=== PATIENT | male | born 1950 | race Caucasian/White ===

== ENCOUNTER 2025-02-10 00:49 | Inpatient (IN) | payer MEDICARE ==
[2025-02-10] VITALS (13 sets, daily range): BP systolic 107–129; BP diastolic 55–73; TEMP 97.2–97.9; O2SAT 90–98
[~2025-02-10] VITALS: Ht 167.6 cm; Wt 61.7 kg
[2025-02-10 01:47] LABS: BASO # 0.1 10^3/uL (0.0-0.2); BASO % 0.3 % (0.0-1.0); EOS # 0.5 10^3/uL (0.0-0.5); EOS % 2.9 % (0.0-3.0); HEMATOCRIT 38.1 % (42.0-52.0); HEMOGLOBIN 11.6 g/dl (13.5-17.5); LYMPH # 1.6 10^3/uL (1.5-5.0); LYMPH % 9.9 % (24.0-44.0); MEAN CORPUSCULAR HEMOGLOBIN 31.9 pg (27.0-33.0); MEAN CORPUSCULAR HGB CONC 30.4 g/dl (32.0-36.5); MEAN CORPUSCULAR VOLUME 104.7 fl (80.0-96.0); MONO # 0.9 10^3/uL (0.0-0.8); MONO % 5.9 % (2.0-8.0); NEUTROPHILS # 12.7 10^3/uL (1.5-8.5); NEUTROPHILS % 80.4 % (36.0-66.0); PLATELET COUNT, AUTOMATED 309 10^3/uL (150-450); RED BLOOD COUNT 3.64 10^6/uL (4.30-6.10); WHITE BLOOD COUNT 15.8 10^3/uL (4.0-10.0)
[2025-02-10 02:09] LABS: INR 0.99; PROTHROMBIN TIME 13.4 SECONDS (12.5-14.5)
[2025-02-10 02:14] LABS: ALBUMIN 3.1 G/DL (3.2-5.2); ALKALINE PHOSPHATASE 174 U/L (40-129); ALT/SGPT 19 U/L (7.0-40); AST/SGOT 33 U/L (<34); BILIRUBIN,DIRECT < 0.1 MG/DL (<0.4); BILIRUBIN,TOTAL 0.2 MG/DL (0.3-1.2); BLOOD UREA NITROGEN 77 MG/DL (9-23); CALCIUM LEVEL 9.1 MG/DL (8.3-10.6); CARBON DIOXIDE LEVEL 22 MMOL/L (20-31); CHLORIDE LEVEL 100 MMOL/L (98-107); CK-MB VALUE MASS 3.7 NG/ML (<3.6); CREATININE FOR GFR 6.31 MG/DL (0.70-1.30); GLOMERULAR FILTRATION RATE 8.7 (>42); GLUCOSE, FASTING 184 MG/DL (74-106); POTASSIUM SERUM 5.7 MMOL/L (3.5-5.1); SODIUM LEVEL 139 MMOL/L (136-145); TOTAL PROTEIN 7.3 G/DL (5.7-8.2)
[2025-02-10 02:15] LABS: CPK CREATINE PHOSPHOKINASE 89 U/L (46-171); MB/CK RELATIVE INDEX 4.15 (< OR =4)
[2025-02-10 02:35] LABS: MAGNESIUM LEVEL 2.1 MG/DL (1.8-2.4)
[2025-02-10] MEDS: CALCIUM GLUCONATE 1,000 MG in DEXTROSE 5% (D5W) MINI-BAG PLU 100 ML IV ONE (06:00)
[2025-02-10] MEDS: cefTRIAXone SOD 1 GM in DEXTROSE 5% (D5W) ADV/MINI-BAG 50 ML IV ONE (06:17)
[2025-02-10 06:27] LABS: KETONE, URINE AUTO RFX NEGATIVE (NEGATIVE); LEUKOCYTE ESTERASE UR AUTO RFX 3+ (NEGATIVE); MUCUS, URINE RFX SMALL (NEGATIVE); NITRITE, URINE AUTO RFX NEGATIVE (NEGATIVE); RBC, URINE AUTO RFX 23 /HPF (0-3); SQUAM EPITHELIAL CELL UR AURFX 0 /HPF (0-6); WBC, URINE AUTO RFX TNTC /HPF (0-3)
[2025-02-10 07:56] LABS: ABG BASE EXCESS -7.7 (-2.0-2.0); ABG HCO3 17.4 MMOL/L (22.0-26.0); ABG O2 SATURATION 90.8 % (95.0-99.0); ABG PARTIAL PRESSURE O2 71.5 mmHg (75.0-100.0); ABG STANDARD HCO3 18.1 MMOL/L. (22.0-26.0); ABG TOTAL CO2 18.4 MMOL/L (23.0-31.0); ABG pH (ARTERIAL) 7.326 UNITS (7.350-7.450)
[2025-02-10] MEDS ORDERED: SEVE2.4P PO (08:35)
[2025-02-10] MEDS ORDERED: LEVE15SO2 PO (08:35)
[2025-02-10] MEDS ORDERED: MIDO2.5T3 PO (08:37)
[2025-02-10] MEDS ORDERED: MIRT-10 PO (08:38)
[2025-02-10] MEDS ORDERED: ELIQ2.5T PO (08:39)
[2025-02-10] MEDS ORDERED: ESOM40CA35 PO (08:40)
[2025-02-10] MEDS ORDERED: AMIO200T49 PO (08:40)
[2025-02-10] MEDS ORDERED: GABA-1172 PO (08:42)
[2025-02-10] MEDS ORDERED: RENATAB5 PO (08:42)
[2025-02-10] MEDS ORDERED: ATOR40TA75 PO (08:42)
[2025-02-10] MEDS ORDERED: CLOP75TA2 PO (08:44)
[2025-02-10] MEDS ORDERED: METO25TA4 PO (08:44)
[2025-02-10] MEDS ORDERED: NEUTPW PO (08:46)
[2025-02-10] MEDS ORDERED: NEPR1LIQ2 PO (08:51)
[2025-02-10] MEDS ORDERED: MELA3TAB30 PO (08:52)
[2025-02-10] MEDS ORDERED: DICL100G10 TOP (08:53)
[2025-02-10] MEDS ORDERED: APAP325T4 PO (08:54)
[2025-02-10] MEDS ORDERED: DOXYCYCLINE HYCLATE 100MG TABLET PO SCH (09:00)
[2025-02-10] MEDS ORDERED: ATORVASTATIN 20 MG TAB PO SCH (09:00)
[2025-02-10] MEDS ORDERED: GABAPENTIN 300 MG CAP PO SCH (09:00)
[2025-02-10] MEDS ORDERED: levETIRAcetam ORAL SOLUTION 500MG/5ML UDC PO SCH (09:00)
[2025-02-10] MEDS ORDERED: APIXABAN 2.5 MG TAB (ELIQUIS) PO SCH (09:00)
[2025-02-10] MEDS ORDERED: CLOPIDOGREL 75 MG TAB PO SCH (09:00)
[2025-02-10] MEDS ORDERED: MIDODRINE 2.5 MG TAB PO SCH (09:00)
[2025-02-10] MEDS ORDERED: METOPROLOL TART 25 MG TABLET PO SCH (09:00)
[2025-02-10] MEDS ORDERED: AMIODARONE 200 MG TAB (PACERONE) PO SCH (09:00)
[2025-02-10] MEDS ORDERED: NEUTRA-PHOS 1.5 GM PACKET PO SCH (09:00)
[2025-02-10] MEDS ORDERED: HOME MED LIST COMPLETE! XX SCH (09:00)
[2025-02-10 09:07] LABS: VENOUS BASE EXCESS -7.2 (-2.0-2.0); VENOUS HCO3 17.6 MMOL/L (23.0-27.0); VENOUS O2 SATURATION 97.5 % (60.0-80.0); VENOUS PARTIAL PRESSURE CO2 33.6 mmHg (38.0-50.0); VENOUS PARTIAL PRESSURE O2 137.5 mmHg (30.0-50.0); VENOUS PH 7.338 UNITS (7.330-7.430); VENOUS STANDARD HCO3 18.6 MMOL/L; VENOUS TOTAL CO2 18.7 MMOL/L (24.0-28.0)
[2025-02-10 12:06] LABS: PROCALCITONIN 0.59 ng/ml
[2025-02-10] MEDS: METOPROLOL TART 25 MG TABLET GT SCH (13:31)
[2025-02-10] MEDS: ATORVASTATIN 20 MG TAB GT SCH (13:31)
[2025-02-10] MEDS: levETIRAcetam ORAL SOLUTION 500MG/5ML UDC GT SCH (13:32)
[2025-02-10] MEDS: NEUTRA-PHOS 1.5 GM PACKET GT SCH (13:32)
[2025-02-10] MEDS: CLOPIDOGREL 75 MG TAB GT SCH (13:32)
[2025-02-10] MEDS: APIXABAN 2.5 MG TAB (ELIQUIS) GT SCH (13:33)
[2025-02-10] MEDS: DOXYCYCLINE HYCLATE 100MG TABLET GT SCH (13:33)
[2025-02-10] MEDS: AMIODARONE 200 MG TAB (PACERONE) GT SCH (13:33)
[2025-02-10] MEDS: MIDODRINE 2.5 MG TAB GT SCH (13:37)
[2025-02-10 14:38] LABS: HEPATITIS B SURFACE ANTIBODY POSITIVE (POSITIVE)
[2025-02-10 14:50] LABS: HEPATITIS B SURFACE ANTIGEN NEGATIVE (NEGATIVE)
[2025-02-10 16:20] LABS: VENOUS O2 SATURATION 96.5 % (60.0-80.0); VENOUS PARTIAL PRESSURE CO2 34.2 mmHg (38.0-50.0); VENOUS PARTIAL PRESSURE O2 108.8 mmHg (30.0-50.0); VENOUS PH 7.338 UNITS (7.330-7.430); VENOUS STANDARD HCO3 18.8 MMOL/L
[2025-02-10] MEDS: GABAPENTIN 300 MG CAP GT SCH (16:40)
[2025-02-10] MEDS ORDERED: HEPARIN 1,000UNITS/ML 10ML VIAL (FOR RADIOLOGY & DIALYSIS ONLY) IV PRN (17:45)
[2025-02-10] MEDS ORDERED: SODIUM CHLORIDE 0.9% 1000 ML IV PRN (17:45)
[2025-02-10] MEDS: IPRATROPIUM 0.5MG/ALBUTEROL 2.5MG INH SOL UD 3ML INH SCH (17:52)
[2025-02-10] MEDS: HEPARIN 1,000UNITS/ML 10ML VIAL (FOR RADIOLOGY & DIALYSIS ONLY) XX SCH (18:37)
[2025-02-11] VITALS (23 sets, daily range): BP systolic 101–120; BP diastolic 49–82; TEMP 97.3–98.5; O2SAT 84–97
[2025-02-11] MEDS: cefTRIAXone SOD 1 GM in DEXTROSE 5% (D5W) ADV/MINI-BAG 50 ML IV SCH (05:23)
[2025-02-11 07:36] LABS: HEMATOCRIT 33.5 % (42.0-52.0); HEMOGLOBIN 10.4 g/dl (13.5-17.5); MEAN CORPUSCULAR HEMOGLOBIN 31.5 pg (27.0-33.0); MEAN CORPUSCULAR VOLUME 101.5 fl (80.0-96.0); PLATELET COUNT, AUTOMATED 231 10^3/uL (150-450); WHITE BLOOD COUNT 9.5 10^3/uL (4.0-10.0)
[2025-02-11 08:07] LABS: CALCIUM LEVEL 8.9 MG/DL (8.3-10.6); CREATININE FOR GFR 4.64 MG/DL (0.70-1.30); GLOMERULAR FILTRATION RATE 12.6 (>42); POTASSIUM SERUM 4.8 MMOL/L (3.5-5.1)
[2025-02-11] MEDS: MIDODRINE 2.5 MG TAB GT SCH (22:02)
[2025-02-12] VITALS (7 sets, daily range): BP systolic 105–125; BP diastolic 55–62; TEMP 97.6–98.8; O2SAT 91–97
[2025-02-12 04:57] LABS: HEMATOCRIT 32.7 % (42.0-52.0); HEMOGLOBIN 10.2 g/dl (13.5-17.5); MEAN CORPUSCULAR HEMOGLOBIN 31.3 pg (27.0-33.0); MEAN CORPUSCULAR HGB CONC 31.2 g/dl (32.0-36.5); MEAN CORPUSCULAR VOLUME 100.3 fl (80.0-96.0); PLATELET COUNT, AUTOMATED 235 10^3/uL (150-450); RED BLOOD COUNT 3.26 10^6/uL (4.30-6.10); WHITE BLOOD COUNT 8.9 10^3/uL (4.0-10.0)
[2025-02-12 05:22] LABS: CREATININE FOR GFR 5.92 MG/DL (0.70-1.30); GLOMERULAR FILTRATION RATE 9.4 (>42); POTASSIUM SERUM 4.2 MMOL/L (3.5-5.1)
[2025-02-12] MEDS ORDERED: HEPARIN 1,000UNITS/ML 10ML VIAL (FOR RADIOLOGY & DIALYSIS ONLY) IV PRN (06:00)
[2025-02-12] MEDS ORDERED: LIDOCAINE 1% SDV 5ML VIAL SC PRN (06:00)
[2025-02-12] MEDS ORDERED: SODIUM CHLORIDE 0.9% 1000 ML IV PRN (06:00)
[2025-02-12] MEDS: HEPARIN 1,000UNITS/ML 10ML VIAL (FOR RADIOLOGY & DIALYSIS ONLY) XX SCH (10:33)
[2025-02-12] MEDS ORDERED: CEFD1CAP9 PO (14:31)
== END 2025-02-12 16:12 | disposition home or self-care (01) | DRG 177 ==
LOC: M ED 00:49 → M ED INP 11:15 → UNDOADMIN 11:15 → M ED INP 11:32 → M PCU 12:41
PROVIDERS: ADMIT Student in an Organized Health Care Education/Training Program; ATTEND Student in an Organized Health Care Education/Training Program
PROC: 5A1D70Z Performance of Urinary Filtration, Intermittent, Less than 6 Hours Per Day (ICD-10-PCS; principal; 2025-02-10)
DX: J69.0 Pneumonitis due to inhalation of food and vomit (principal); N18.6 End stage renal disease; J96.01 Acute respiratory failure with hypoxia; E87.20 Acidosis, unspecified; Z99.2 Dependence on renal dialysis; I25.2 Old myocardial infarction; Z86.74 Personal history of sudden cardiac arrest; R13.10 Dysphagia, unspecified; I25.10 Atherosclerotic heart disease of native coronary artery without angina pectoris; Z93.0 Tracheostomy status; Z93.1 Gastrostomy status; E87.5 Hyperkalemia; Z79.01 Long term (current) use of anticoagulants; Z79.02 Long term (current) use of antithrombotics/antiplatelets; Z79.899 Other long term (current) drug therapy; I95.9 Hypotension, unspecified